=== PATIENT | male | born 1990 | race Caucasian/White ===

== ENCOUNTER → 2022-09-09 13:39 | Outpatient (CLI) | payer BC, SELFPAY ==
--- NOTE | ~2022-09-09 | XR_ITS ---
EXAMINATION: XR chest 2V Exam Date/Time: 09/09/2022 13:43 DIGITAL STRATEGY DIRECTOR HISTORY: right side cp near sternum on and off for 1 year Comparison: None available. RESULT: Lines, tubes, and devices: None. Lungs and pleura: Clear. Cardiomediastinal silhouette: Normal. Other: No acute osseous or upper abdominal finding. IMPRESSION: No acute cardiopulmonary process. Reviewed, dictated and finalized at location K. TAL STRATEGY DIRECTOR
== END ==
PROVIDERS: PCP Nurse Practitioner; Visit Provider Nurse Practitioner
DX: R07.81 Pleurodynia (principal)
CPT/HCPCS: 71046

== ENCOUNTER 2023-03-30 11:00 | Outpatient (CLI) | payer BC, SELFPAY ==
[2023-03-30 18:08] LABS: Basophils Percent Auto 0.5 % (0.2-1.2); Eosinophils Absolute Auto 0.1 K/mm3 (0-0.3); Eosinophils Percent Auto 1.4 % (0-4.4); Hematocrit 46.4 % (42.0-52.0); Hemoglobin 15.6 g/dL (14.0-18.0); Immature Granulocyte Absolute 0.01 K/mm3 (0.00-0.031); Immature Granulocyte Percent A 0.2 % (0-0.5); Lymphocytes Absolute Auto 1.53 K/mm3 (0.9-3.2); Lymphocytes Percent Auto 35.1 % (18.3-44.2); Mean Corpuscular HGB Conc 33.6 g/dl (32-36); Mean Corpuscular Hemoglobin 30.6 pg (26-34); Mean Corpuscular Volume 91.2 fl (80-100); Mean Platelet Volume 10.9 fl (7.4-10.4); Monocytes Absolute Auto 0.3 K/mm3 (0.1-0.6); Monocytes Percent Auto 6.4 % (2.6-8.5); Neutrophils Absolute Auto 2.5 K/mm3 (1.3-6.7); Neutrophils Percent Auto 56.4 % (45.5-73.1); Platelet Count Result 245 k/mm3 (150-375); Red Blood Count 5.09 M/mm3 (4.6-6.20); Red Cell Distribution Width 11.5 % (11.5-14.5); White Blood Count 4.4 K/mm3 (4.5-10.0)
[2023-03-30 18:29] LABS: Alanine Aminotransferase 25 U/L (6-50); Albumin Level 4.8 g/dL (3.5-5.1); Alkaline Phosphatase 56 U/L (38-126); Anion Gap 9 mmol/L (8-16); Aspartate Amino Transferase 35 U/L (17-59); Bilirubin,Total 0.5 mg/dL (0.2-1.3); Blood Urea Nitrogen 14 mg/dL (9-20); Calcium 9.1 mg/dL (8.4-10.2); Carbon Dioxide 30 mmol/L (22-30); Chloride 100 mmol/L (98-107); Creatine Kinase 79 U/L (55-170); Estimated Glomerular Filt Rate > 60; Glucose 98 mg/dL (65-110); Potassium 4.1 mmol/L (3.4-5.0); Sodium 139 mmol/L (137-145)
[2023-03-30 18:48] LABS: Hepatitis C Virus Antibody Negative (Negative)
[2023-04-02 12:12] LABS: Aldolase 3.9 U/L (<=8.1); Angiotensin Converting Enzyme 17 U/L (9-67)
[2023-04-03 03:17] LABS: SM Antibody <1.0; SM/RNP Antibody <1.0
[2023-04-04 12:24] LABS: HLA B27 Positive (Negative)
== END 2023-03-30 11:01 | disposition home or self-care (01) ==
LOC: ANHGOSHLAB 11:03
PROVIDERS: PCP Nurse Practitioner; Visit Provider Internal Medicine
DX: M19.90 Unspecified osteoarthritis, unspecified site (principal); M24.9 Joint derangement, unspecified; M06.041 Rheumatoid arthritis without rheumatoid factor, right hand; M06.042 Rheumatoid arthritis without rheumatoid factor, left hand
CPT/HCPCS: 36415; 80053; 82085; 82164; 82550; 83520; 85025; 86235; 86803; 86812

== ENCOUNTER → 2023-03-30 11:22 | Outpatient (CLI) | payer BC, SELFPAY ==
--- NOTE | ~2023-03-30 | XR_ITS ---
EXAMINATION: HAND-SIM ARTHRITIS 3+VIEWS DATE: 03/30/2023 11:56 INDICATION: Multiple joint pain TECHNIQUE: Posteroanterior, lateral, and oblique views of the left and of the right hands as well as a ballcatchers view of both hands were obtained. COMPARISON: None. FINDINGS: Ulnar positive variance measuring 2 to 3 mm in the left and 2 mm on the right. Otherwise normal align ment at the bilateral hands and wrists. No fractures. Joint spaces are normal throughout. No erosions to suggest inflammatory arthritis. Soft tissues are unremarkable. IMPRESSION: 1. Normal joint spaces throughout the bilateral hands and wrists. Reviewed, dictated and finalized at location A.
--- NOTE | ~2023-03-30 | XR_ITS ---
EXAMINATION: XR sacroiliac joints min 3V DATE: 03/30/2023 11:55 INDICATION: Multiple joint pain TECHNIQUE: AP and left and right oblique views of the bilateral sacroiliac joints were obtained. COMPARISON: None. FINDINGS: Bone alignment is normal. No fracture. Bilateral hip and sacroiliac joint spaces are normal. No erosi ons to suggest inflammatory sacroiliitis. IMPRESSION: 1. Negative bilateral sacroiliac joint radiographs. Reviewed, dictated and finalized at location A.
--- NOTE | ~2023-03-30 | XR_ITS ---
EXAMINATION: XR knee LT 3V DATE: 03/30/2023 11:56 INDICATION: Left knee joint pain. TECHNIQUE: 3 views of left knee were obtained. COMPARISON: None. FINDINGS: Bone alignment is normal. No fracture. There is mild tricompartmental osteoarthritis charac terized by tiny osteophytes. No joint space narrowing. No knee joint effusion. IMPRESSION: 1. Mild left knee osteoarthritis. Reviewed, dictated and finalized at location A.
--- NOTE | ~2023-03-30 | XR_ITS ---
EXAMINATION: XR knee RT 3V DATE: 03/30/2023 11:56 INDICATION: Multiple joint pain. TECHNIQUE: 3 views of right knee were obtained. COMPARISON: None. FINDINGS: Bone alignment is normal. No fracture. Joint spaces are normal. No knee joint effusion. IMPRESSION: 1. Normal right knee. Reviewed, dictated and finalized at location A. IMPRESSION: 1. Normal right knee.
--- NOTE | ~2023-03-30 | XR_ITS ---
EXAMINATION: XR foot LT standing 2V, XR foot RT standing 2V DATE: 03/30/2023 11:56 INDICATION: Multiple joint pain TECHNIQUE: 1. Dorsoplantar and lateral views of the left foot were obtained. 2. Dorsoplantar and lateral views of the right foot were obtained. COMPARISON: None. FINDINGS: Alignment is normal. No fracture. Joint spaces are normal at the bilateral feet and ankles. No erosio ns. Sclerotic bone islands at the posterior left calcaneus and at the head of the right talus and at the head of the right third metacarpal. Soft tissues are unremarkable. No ankle joint effusions. IMPRESSION: 1. Normal joint spaces throughout the bilateral feet and ankles. Reviewed, dictated and finalized at location A. IMPRESSION: 1. Normal joint spaces throughout the bilateral feet and ankles.
== END ==
PROVIDERS: PCP Nurse Practitioner; Visit Provider Internal Medicine
DX: M17.12 Unilateral primary osteoarthritis, left knee (principal); M25.571 Pain in right ankle and joints of right foot; M25.572 Pain in left ankle and joints of left foot; M25.561 Pain in right knee; M25.541 Pain in joints of right hand; M25.542 Pain in joints of left hand; M53.3 Sacrococcygeal disorders, not elsewhere classified
CPT/HCPCS: 72202; 73130; 73562; 73620

== ENCOUNTER 2023-04-03 10:53 | Emergency (ER) | payer BC, SELFPAY ==
--- NOTE | ~2023-04-03 | US_ITS ---
EXAMINATION: US venous doppler UE DATE: 04/03/2023 12:33 INDICATION: Recent blood work. DVT. Phlebitis. TECHNIQUE: Fajardo scale images with and without compression and Doppler images of the left upper extrem ity veins were obtained. COMPARISON: None. FINDINGS: The left internal jugular vein, subclavian vein, axillary vein, brachial veins, basilic vein, cephali c vein, radial vein, and ulnar vein are patent. IMPRESSION: 1. Patent left upper extremity veins. No evidence of deep venous thrombosis. Reviewed, dictated and finalized at location B.
[2023-04-03 11:04] VITALS: BP 141/81; PULSE 91; RESP 15; TEMP 36.3; O2SAT 100
--- NOTE | 2023-04-03 12:45 | ED.GENADULT ---
HPI - General Adult General Chief complaint: Extremity Problem,Nontraumatic Stated complaint: blood clot Time Seen by Provider: 04/03/23 12:04 Source: patient Mode of arrival: ambulatory Limitations: no limitations History of Present Illness HPI narrative: Patient is a 32 y/o male who presents to the ED with c/o left forearm pain. Patient reports he has been lifting weights at home over the last couple weeks. He noticed some discomfort and swelling in his left proximal forearm last week. He thought it may be related to the weightlifting. He then had a routine primary care doctor appointment on Thursday and had outpatient labs drawn from the left AC. He states since then he has had more persistent pain, swelling, bruising in the area of his left AC. He is concerned for a blood clot. Denies any chest pain or difficulty breathing. Denies previous history of blood clots. Related Data Home Medications Medication Instructions Recorded Confirmed cetirizine 10 mg capsule (Zyrtec) 10 mg PO DAILY PRN 01/19/23 epinephrine 0.3 mg/0.3 mL 0.3 mg IM ONCE PRN 03/30/23 injection, auto-injector (EpiPen 2-Frederic) Allergies Allergy/AdvReac Type Severity Reaction Status Date / Time No Known Allergies Allergy Verified 04/03/23 11:16 Review of Systems Review of Systems: CONSTITUTIONAL: Denies fever, chills, or sweats. CARDIOVASCULAR: Denies chest pain. RESPIRATORY: Denies dyspnea. GASTROINTESTINAL: Denies abdominal pain, nausea, vomiting. SKIN: See HPI. MUSCULOSKELETAL: See HPI. All systems reviewed & are unremarkable except as noted in HPI and below PMFSH Past Medical History Medical History Anxiety Attention Deficit Hyperactivity Disorder (ADHD) Depression Environmental allergies Inflammatory arthritis Low testosterone in male Multiple allergies Family History Family History Mother Patient's mother is in good health Father Patient's father is in good health Sibling Patient's sister is in good health Social History Social History Social History: caffeine-daily Smoking status: Never smoker Alcohol intake: current Alcohol use details: all beverages Lack of Transportation: No Lack of Food: Never True Current Housing: I Have Housing Concerned About Future Housing: No Difficulty Paying Gas/Electric Bills: No Difficulty Paying for Meds: No Currently Unemployed: No Education: High School Diploma/GED Difficulty w/ Childcare or Family Care: No Exam Narrative: GENERAL: Well appearing, well-nourished, non-toxic, in no acute distress. HEAD: Normocephalic, atraumatic. NECK: Supple. No adenopathy, no masses. RESPIRATORY: Airway patent, respirations nonlabored. Clear to auscultation bilaterally, no rales, rhonchi, wheezing. CARDIOVASCULAR: Regular rate and rhythm without murmurs, rubs, or gallops. Radial pulses 2+ and equal bilaterally. MUSCULOSKELETAL: Moves all extremities. Strength/ROM intact without gross deformities. Full range of motion of left upper extremity. Mild tenderness to medial proximal left forearm in area of left AC, veins are somewhat palpable in this region. Small area of ecchymosis present. Sensation intact. SKIN: Warm, dry, normal color. No rashes. NEURO: A&O X3. Speech clear. Cranial nerves II-XII grossly intact. Steady gait. No ataxic movements. PSYCHIATRIC: Appropriate mood and affect. Normal interaction. Course Vital Signs Vital signs: Vital Signs Temperature 97.4 F L 04/03/23 11:04 Pulse Rate 91 04/03/23 11:04 Respiratory Rate 15 04/03/23 11:04 Blood Pressure 141/81 H 04/03/23 11:04 Pulse Oximetry 100 04/03/23 11:04 Oxygen Delivery Room Air 04/03/23 11:04 Temperature 97.4 F L 04/03/23 11:04 Pulse Rate 91 04/03/23 13:53 Respiratory Rate 15 08
[2023-04-03 13:53] VITALS: BP 140/80; PULSE 91; RESP 15; O2SAT 100
== END 2023-04-03 13:54 | disposition home or self-care (01) ==
PROVIDERS: Emergency Provider Physician Assistant; PCP Nurse Practitioner
DX: M79.632 Pain in left forearm (principal); M79.89 Other specified soft tissue disorders
CPT/HCPCS: 93971; 99284

== ENCOUNTER 2023-05-02 14:12 | Emergency (ER) | payer BC, SELFPAY ==
[2023-05-02 14:29] VITALS: BP 128/92; PULSE 81; RESP 16; TEMP 36.5; O2SAT 100
--- NOTE | 2023-05-02 14:35 | ED.EXTPRO ---
HPI - Extremity Problem General Chief complaint: Extremity Problem,Nontraumatic Stated complaint: Left Arm Discomfort Time Seen by Provider: 05/02/23 14:30 Source: patient Mode of arrival: ambulatory Limitations: no limitations History of Present Illness HPI Narrative: Artur is a 32-year-old male patient presenting to the clinic today with complaints of pain to the left medial arm forearm. The initial pain started approximately 6 weeks ago when he was completing hammer curls. He reports that he had some pain to the medial forearm. 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 Was seen in the ER as he has recently had a blood drawl completed and noted some redness and swelling in that area so he was ruled out for a blood clot. At that time the ultrasound was normal. He is concerned about this as he is scheduled to take a flight the next few days. Related Data Home Medications Medication Instructions Recorded Confirmed cetirizine 10 mg capsule (Zyrtec) 10 mg PO DAILY PRN allergies 01/19/23 05/02/23 epinephrine 0.3 mg/0.3 mL 0.3 mg IM ONCE PRN Allergic 03/30/23 05/02/23 injection, auto-injector (EpiPen Reaction 2-Frederic) Allergies Allergy/AdvReac Type Severity Reaction Status Date / Time No Known Allergies Allergy Verified 05/02/23 14:27 Review of Systems Review of Systems: Pertinent positives per HPI. Patient denies any fever, chills, rash, headache, visual changes, dizziness, cough, runny nose, sore throat, shortness of breath, chest pain, palpitations, nausea, vomiting, diarrhea, constipation, abdominal pain, or any urinary issues. [facility] Past Medical History Medical History Anxiety Attention Deficit Hyperactivity Disorder (ADHD) Depression Environmental allergies Inflammatory arthritis Low testosterone in male Multiple allergies Family History Family History Mother Patient's mother is in good health Father Patient's father is in good health Sibling Patient's sister is in good health Social History Social History (Reviewed 05/02/23 @ 14:44 by ARIADNE Bryan Social History: caffeine-daily Smoking status: Never smoker Alcohol intake: current Alcohol use details: all beverages Lack of Transportation: No Lack of Food: Never True Current Housing: I Have Housing Concerned About Future Housing: No Difficulty Paying Gas/Electric Bills: No Difficulty Paying for Meds: No Currently Unemployed: No Education: High School Diploma/GED Difficulty w/ Childcare or Family Care: No Comments At the time of my signature, I reviewed and agree with the nursing past medical, surgical, social, and family history. There is no relevant family history pertinent to the patient complaint. Exam Narrative: General: Well-developed, well nourished, in no apparent distress Head: Normocephalic, atraumatic. Cardio: Regular rate and rhythm, s1 and s2 normal, no murmur appreciated. Resp: Clear to auscultation bilaterally, no rhonchi, rales, wheezing or rubs. Musculoskeletal: No deformity, tender to palpation over the left medial forearm just distal to the elbow, discomfort is reproduced with flexing his biceps against resistance, negative Tinel's, grossly normal range of motion, muscle strength strong and equal, peripheral pulse strong, no edema, no cyanosis, normal gait and station Course Course Emergency Course: Portions of this record may have been created with voice recognition software. Level of Care: Express Care Visit Vital Signs Vital signs: Vital Signs Temperature 36.5 C 05/02/23 14:29 Pulse Rate 81 05/02/23 14:29 Respiratory Rate 16 05/02/23 14:29 Blood Pressure 128/
== END 2023-05-02 14:45 | disposition home or self-care (01) ==
PROVIDERS: Emergency Provider Nurse Practitioner Family; PCP Internal Medicine
DX: S56.911A Strain of unspecified muscles, fascia and tendons at forearm level, right arm, initial encounter (principal); X50.3XXA Overexertion from repetitive movements, initial encounter; Y93.B3 Activity, free weights; M13.80 Other specified arthritis, unspecified site; F41.9 Anxiety disorder, unspecified; F32.A Depression, unspecified
CPT/HCPCS: 99213; G0463

== ENCOUNTER 2023-06-18 12:30 | Outpatient (RCR) | payer BC, SELFPAY ==
--- NOTE | 2023-05-14 12:21 | PTOPEVAL1 ---
Assessment and note entered by Melo Ortega Evaluation Information Assessment Status Evaluation Diagnosis enthesopathy Onset 03/14/23 Subjective Information Pt. reports that he began developing left elbow pain about 2 months ago. He describes the pain on the inside of the left elbow. He states that he recently began light weight lifting which he can relate to around the onset of his pain. 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 He describes a feeling of swelling in the medial left elbow and a feeling of tightness. He reports that his condition has improved since its onset, but still notes palpable tenderness. He states that motion of described wrist pronation triggers his pain. He does utilize ibuprofen on occasion to reduce pain. He reports that his goal is to reduce his pain. Reported Pain Level Pain Score 1: Self Report Assessment PT Clinical Summary Pt. is a 32 year old male who enters the clinic with left elbow pain. Pt. presents with hypermobility and pain on this date. Educated pt. in regards to overuse syndrome involving the mm. for flexion and pronation of the let wrist. Recommended pt. attempt wrist immobilization at home for 1-2 weeks utilizing a wrist cock up splint and modify job related duties as indicated. Continued skilled PT is indicated utilizing modality care to reduce pain and inflammation and transitioning into eccentric strengthening as dictated by pain reports. Plan of Care Interventions Electrical Stimulation,Hot Pack/Cold Pack,Manual Therapy,Patient/Caregiver Educati,Therapeutic Activities,Therapeutic Exercise PT Services Indicated Yes Treatment Frequency and 1x/week x 5 visits Duration These treatments will address the objective and functional deficits as defined above. The patient will be advanced safely and appropriately in order for the patient to progress towards his/her prior level of function. Additional exercises will be introduced and as well as a comprehensive home exercise program upon discharge, if needed, ?to ensure carryover of functional gains achieved in the clinic. This treatment plan has been reviewed and agreement upon by the patient.
--- NOTE | 2023-05-22 12:46 | PCPTNOTE ---
Pt. did not show for appointment. Called and left a voicemail and reminded pt. of his next upcoming appointment.
--- NOTE | 2023-06-18 13:26 | PTOPDC ---
Assessment and note entered by Lucas Robledo, PT Evaluation Information Assessment Status Discharge Diagnosis enthesopathy Onset 03/14/23 Subjective Information Patient reports that he is still having occasional pain in medial elbow but it has not been restrictive at this point. He has looked into ergonomic elbow placement and considering adaptive equipment. Feels comfortable with exercises and no concerns with HEP at this time. Reported Pain Level Pain Score 0: Self Report Assessment PT Clinical Summary Patient met all goals for therapy at this time. He continues to show hypermobility at baseline but no inhibition in strength or pain with muscle contraction. Demonstrates compliance with HEP ad suitable for discharge at this time. Plan of Care PT Services Indicated No
== END 2023-06-23 07:18 | disposition home or self-care (01) ==
LOC: ANHPT 12:30
PROVIDERS: PCP Internal Medicine; Visit Provider Internal Medicine
DX: M77.9 Enthesopathy, unspecified (principal)
CPT/HCPCS: 97014; 97110; 97140; 97161; 97530; 99199; G0283

== ENCOUNTER 2024-08-08 09:57 | Outpatient (CLI) | payer BC, SELFPAY ==
[2024-08-08 20:38] LABS: Basophils Percent Auto 0.5 % (0.2-1.2); Eosinophils Absolute Auto 0.1 K/mm3 (0-0.3); Eosinophils Percent Auto 1.6 % (0-4.4); Hematocrit 44.1 % (42.0-52.0); Hemoglobin 14.9 g/dL (14.0-18.0); Immature Granulocyte Absolute 0.01 K/mm3 (0.00-0.031); Immature Granulocyte Percent A 0.2 % (0-0.5); Lymphocytes Absolute Auto 1.98 K/mm3 (0.9-3.2); Mean Corpuscular HGB Conc 33.8 g/dl (32-36); Mean Corpuscular Hemoglobin 31.4 pg (26-34); Mean Platelet Volume 11.1 fl (7.4-10.4); Monocytes Absolute Auto 0.6 K/mm3 (0.1-0.6); Monocytes Percent Auto 10.4 % (2.6-8.5); Neutrophils Absolute Auto 2.8 K/mm3 (1.3-6.7); Neutrophils Percent Auto 51.3 % (45.5-73.1); Platelet Count Result 251 k/mm3 (150-375); Red Blood Count 4.74 M/mm3 (4.6-6.20); Red Cell Distribution Width 11.9 % (11.5-14.5); White Blood Count 5.5 K/mm3 (4.5-10.0)
[2024-08-08 21:14] LABS: Alanine Aminotransferase 27 U/L (6-50); Albumin Level 4.5 g/dL (3.5-5.1); Alkaline Phosphatase 57 U/L (38-126); Anion Gap 5 mmol/L (4-12); Aspartate Amino Transferase 48 U/L (17-59); Bilirubin,Total 0.7 mg/dL (0.2-1.3); Blood Urea Nitrogen 13 mg/dL (9-20); Calcium 9.3 mg/dL (8.4-10.2); Carbon Dioxide 31 mmol/L (22-30); Chloride 102 mmol/L (98-107); Cholesterol 217 mg/dL (0-200); Estimated Glomerular Filt Rate > 60; Glucose 77 mg/dL (65-110); HDL Direct 38 mg/dL; Potassium 4.6 mmol/L (3.4-5.0); Sodium 138 mmol/L (137-145); Triglycerides 110 mg/dL (<150)
[2024-08-08 21:25] LABS: LDL Cholesterol Direct 136 mg/dL
== END 2024-08-08 09:58 | disposition home or self-care (01) ==
LOC: ANHGOSHLAB 09:58
PROVIDERS: PCP Nurse Practitioner; Visit Provider Nurse Practitioner
DX: Z13.220 Encounter for screening for lipoid disorders (principal); Z13.29 Encounter for screening for other suspected endocrine disorder
CPT/HCPCS: 36415; 80053; 80061; 85025

== ENCOUNTER 2025-05-17 13:01 | Emergency (ER) | payer BC, SELFPAY ==
--- NOTE | 2025-05-17 13:06 | ED.GENADULT ---
HPI - General Adult General Chief complaint: Skin/Abscess/Foreign Body Stated complaint: thorn in both thumbs Time Seen by Provider: 05/17/25 13:02 Source: patient Mode of arrival: ambulatory Limitations: no limitations History of Present Illness HPI narrative: Pt is a 34 y/o male presenting with c/o suspected thorn in both thumbs. Reports pulling locust trees the other day at his house when thorns penetrated his thumbs. He states he attempted to remove thorns at home with tweezers but voices concerned for retained foreign bodies. 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 No constitutional sx. No additional complaints. Related Data Home Medications ?Medication ?Instructions ?Recorded ?Confirmed ?Last Taken ?Type cetirizine 10 mg capsule (Zyrtec) 10 mg PO DAILY PRN allergies 01/19/23 08/08/24 Unknown History Allergies Allergy/AdvReac Type Severity Reaction Status Date / Time No Known Allergies Allergy Verified 05/17/25 13:03 Review of Systems Review of Systems: CONSTITUTIONAL: Denies body aches, fever, chills, or sweats. EYES: Denies visual changes, redness, or discharge. ENT: Denies rhinorrhea, congestion, sore throat, or otalgia. CARDIOVASCULAR: Denies chest pain, palpitations, or edema. RESPIRATORY: Denies cough or dyspnea. GASTROINTESTINAL: Denies abdominal pain, nausea, vomiting, or diarrhea. GENITOURINARY: Denies dysuria or hematuria. SKIN: reports foreign bodies to thumbs. Denies rash, itching MUSCULOSKELETAL: Denies back pain, joint pain, or myalgia. NEUROLOGIC: Denies headache, numbness, tingling, or weakness. PSYCH: Denies depression or anxiety. All systems reviewed & are unremarkable except as noted in HPI and below PMFSH Past Medical History Medical History Inflammatory arthritis Anxiety Depression Multiple allergies Environmental allergies Low testosterone in male Attention Deficit Hyperactivity Disorder (ADHD) Family History Family History Mother Patient's mother is in good health Father Patient's father is in good health Sibling Patient's sister is in good health Social History Social History Social History: caffeine-daily Smoking status: Never smoker Alcohol intake: current Alcohol use details: all beverages Lack of Transportation: No Lack of Food: Never True Current Housing: I Have Housing Concerned About Future Housing: No Difficulty Paying Gas/Electric Bills: No Difficulty Paying for Meds: No Currently Unemployed: No Education: High School Diploma/GED Difficulty w/ Childcare or Family Care: No Exam Narrative: GENERAL: Well-appearing, well-nourished, and in no acute distress. HEAD: Normocephalic, atraumatic. EYES: EOMI. No redness or drainage. ENT: Mucous membranes pink and moist. NECK: Normal AROM. Supple. CHEST: No respiratory distress. HEART: Regular rate Normal peripheral pulses. EXTREMITIES: Normal range of motion. No edema. SKIN: Warm, dry, no rash. Capillary refill normal. Normal skin turgor. black, pinpoint areas noted to the palmar aspect of thumbs (distal). No evidence of bacterial skin infection NEURO: No focal deficits. Alert and oriented x3. Gait steady. PSYCH: Normal affect. No signs of depression or anxiety. Course Course Level of Care: Express Care Visit Vital Signs Vital signs: Vital Signs Temperature 97.6 F 05/17/25 13:16 Pulse Rate 71 05/17/25 13:16 Respiratory Rate 16 05/17/25 13:16 Blood Pressure 110/73 05/17/25 13:16 Pulse Oximetry 100 05/17/25 13:16 Temperature 97.6 F 05/17/25 13:16 Pulse Rate 71 05/17/25 13:16 Respiratory Rate 16 05/17/25 13:16 Blood Pressure 110/73 05/17/25 13:16 Pulse Oximetry 100 05/17/25 13:16 Procedures Foreign Body Removal Foreign Body #1: Foreign Body Removal Date: 05/17/25 Foreign Body Removal Time: 13:30 Time Out Performed: no Site: left and upper extremity (thumb) Description of foreign body: other (sliver of a thorn) Sedation/Analgesia: other (0.2cc of lido with epi) Technique: other (bevel of 18g needle) Confirmed by:: direct visualization, patient report and palpation Complications: none Post-procedure exam: awake, alert Neurovascular: normal distal pulse, normal capillary fill, distal light touch sensation intact, distal motor function normal and no signs of compartment syndrome Foreign Body #2: Foreign Body Removal Date: 05/17/25 Foreign Body Removal Time: 13:39 Time Out Performed: no Site: right and upper extremity (thumb) Description of foreign body: other (sliver of thorn) Sedation/Analgesia: other (0.2cc lido with epi) Technique: other (bevel of 18g needle) Confirmed by:: direct visualization, patient report and palpation Complications: none Post-procedure exam: awake, alert Neurovascular: normal distal pulse, normal capillary fill, distal light touch sensation intact, distal motor function normal and no signs of compartment syndrome Medical Decision Making Vital Signs Vital Signs: Vital Signs Temperature 97.6 F 05/17/25 13:16 Pulse Rate 71 05/17/25 13:16 Respiratory Rate 16 05/17/25 13:16 Blood Pressure 110/73 05/17/25 13:16 Pulse Oximetry 100 05/17/25 13:16 Temperature 97.6 F 05/17/25 13:16 Pulse Rate 71 05/17/25 13:16 Respiratory Rate 16 05/17/25 13:16 Blood Pressure 110/73 05/17/25 13:16 Pulse Oximetry 100 05/17/25 13:16 Discharge Plan Discharge Clinical Impression: Foreign body of thumb, right, superficial Qualifiers: Encounter type: initial encounter Qualified Code(s): S60.351A - Superficial foreign body of right thumb, initial encounter Foreign body of thumb, left, superficial Qualifiers: Encounter type: initial encounter Qualified Code(s): S60.352A - Superficial foreign body of left thumb, initial encounter Patient Disposition: Home Condition: Stable Instructions: Acute Wounds (DC) Additional Instructions: Go straight to ER should your symptoms become worse or should any new symptoms develop Patient Language: Amharic Prescriptions: No Action Zyrtec 10 mg capsule 10 mg PO DAILY PRN (Reason: allergies) escitalopram oxalate 20 mg tablet 20 mg PO DAILY Qty: 90 3RF Follow-up/Referrals: Sulaiman Herbert DO [Primary Care Provider, Internal Medicine] - 05/18/25 Time of Disposition: 13:31
[2025-05-17 13:16] VITALS: BP 110/73; PULSE 71; RESP 16; TEMP 36.4; O2SAT 100
[2025-05-17] MEDS: LIDO 1%/EPINEPHRINE 1:100,000 20 ML VIAL 3 ML INFILTRATE (13:22)
== END 2025-05-17 13:35 | disposition home or self-care (01) ==
PROVIDERS: Emergency Provider Registered Nurse; PCP Internal Medicine
DX: S60.352A Superficial foreign body of left thumb, initial encounter (principal); S60.351A Superficial foreign body of right thumb, initial encounter; W60.XXXA Contact with nonvenomous plant thorns and spines and sharp leaves, initial encounter; M19.90 Unspecified osteoarthritis, unspecified site; F41.9 Anxiety disorder, unspecified; F32.A Depression, unspecified
CPT/HCPCS: 99212; G0463; J2004